=== PATIENT | female | born 1980 | race Caucasian/White ===

== ENCOUNTER 2017-02-23 19:40 | Emergency (ER) | payer OTHER ==
[~2017-02-23] VITALS: Ht 154.9 cm; Wt 60.1 kg
[2017-02-23 20:59] LABS: BILIRUBIN,URINE SMALL (NEG); GLUCOSE,URINE NEGATIVE (NEG); NITRITE,URINE NEGATIVE (NEG); PROTEIN,URINE 30 mg/dL (NEG-TRACE)
[2017-02-23 21:07] LABS: BACTERIA,URINE MODERATE /HPF (0-FEW); RBC,URINE 0 /HPF (0-2)
[2017-02-23 21:08] LABS: SQUAMOUS EPITHELIAL CELL,UR MOD /LPF
[2017-02-23 21:21] LABS: BASO % 1 % (0-3); EOS % 3 % (0-3); HEMATOCRIT 42.5 % (36.0-47.0); HEMOGLOBIN 13.9 g/dL (12.0-15.5); LYMPH # 2.1 x10^3/uL (1.0-4.8); LYMPH % 34 % (24-48); MEAN CORPUSCULAR HEMOGLOBIN 30 pg (25-35); MEAN CORPUSCULAR HGB CONC 33 g/dL (31-37); MEAN CORPUSCULAR VOLUME 90 fL (79-100); MONO % 8 % (0-9); NEUT % 54 % (31-73); PLATELET COUNT 229 x10^3/uL (140-400); RED BLOOD COUNT 4.72 x10^6/uL (3.50-5.40); RED CELL DISTRIBUTION WIDTH 14.6 % (11.5-14.5); WHITE BLOOD COUNT 6.2 x10^3/uL (4.0-11.0)
[2017-02-23 21:30] LABS: CALCIUM 9.1 mg/dL (8.5-10.1); CREATININE 0.7 mg/dL (0.6-1.0); GFR 95.8; POTASSIUM 3.3 mmol/L (3.5-5.1)
[2017-02-23] MEDS ORDERED: ONDANSETRON PF 4 MG/2 ML VIAL. IV ONE (21:30)
[2017-02-23] MEDS ORDERED: MORPHINE SULFATE 4 MG/ML DISP.SYRIN. IV ONE (21:30)
[2017-02-23] MEDS ORDERED: IV NORMAL SALINE 1000ML BAG 1,000 ML IV ONE (21:30)
--- NOTE | 2017-02-23 22:23 | RAD ---
PROCEDURE Pelvic sonogram. HISTORY Pelvic pain. TECHNIQUE Trans abdominal and transvaginal sonographic imaging of the pelvis was performed. COMPARISON None. FINDINGS The uterus measures 8.4 x 5.2 x 3.5 cm. The endometrial stripe measures 8.2 mm. The right ovary measures 3.0 x 2.5 x 2.1 cm and contains a 2.0 cm cyst. The left ovary measures 2.1 x 1.2 x 1.0 cm. There is normal blood flow within both ovaries. There are bilateral ovarian follicles. There are nabothian cysts within the cervix. There is no pelvic free fluid. IMPRESSION 1. 2.0 cm right ovarian cyst. 2. Nabothian cysts within the cervix. Electronically signed by: Ginny Lucas (Feb 23, 2017 22:21:34)
[2017-02-23] MEDS ORDERED: HYDR-971 PO (22:58)
[2017-02-23] MEDS ORDERED: ONDA4TAB7 PO (22:58)
--- NOTE | 2017-02-23 22:59 | PHYS DOC ---
Past Medical History Past Medical History: Other Additional Past Medical Histor: ovarian cysts, 'abd migraines' Past Surgical History: Appendectomy, Other Additional Past Surgical Histo: fallopian tube removal Alcohol Use: Rarely Drug Use: None Adult General Chief Complaint Chief Complaint: FLANK PAIN HPI HPI This 36 old female who's having significant lower abdominal pain for the last day and a half. She states she's had intermittent episodes of symptoms similar to this for the past year and has had multiple CT scans and ultrasounds that have demonstrated only cysts in her ovaries. She has history of tubal ligations but still has both of her ovaries and uterus. She denies any current vaginal bleeding. She states she was complete her normal menstrual cycles for the past several weeks ago. She has been mildly nauseated as well with her symptoms. She denies any dysuria or hematuria. She denies any fever or chills. She rates her pain a 9/10 on the pain scale. Review of Systems Review of Systems Constitutional: Denies fever or chills [] Eyes: Denies change in visual acuity, redness, or eye pain [] HENT: Denies nasal congestion or sore throat [] Respiratory: Denies cough or shortness of breath [] Cardiovascular: No additional information not addressed in HPI [] GI: Has abdominal pain, has nausea, has vomiting, denies bloody stools or diarrhea [] : Denies dysuria or hematuria [] Musculoskeletal: Denies back pain or joint pain [] Integument: Denies rash or skin lesions [] Neurologic: Denies headache, focal weakness or sensory changes [] Endocrine: Denies polyuria or polydipsia [] Current Medications Current Medications Current Medications Medications (Trade) Dose Ordered Sig/Sharon Start Time Stop Time Status Last Admin Dose Admin Morphine Sulfate 4 mg 1X ONCE 02/23/17 21:30 02/23/17 21:31 DC 02/23/17 21:40 4 MG Ondansetron HCl 4 mg 4 mg 1X ONCE 02/23/17 21:30 02/23/17 21:31 DC 02/23/17 21:40 4 MG Sodium Chloride (Iv Sodium Chloride 0.9% 1000ml Bag) 1,000 ml @ 1,000 mls/hr 1X ONCE 02/23/17 21:30 02/23/17 22:29 DC 02/23/17 21:27 1,000 MLS/HR Allergies Allergies Allergies Coded Allergies Type Severity Reaction Last Updated Verified No Known Drug Allergies 02/23/17 No Physical Exam Physical Exam Constitutional: Well developed, well nourished, no acute distress, non-toxic appearance. [] HENT: Normocephalic, atraumatic, bilateral external ears normal, oropharynx moist, no oral exudates, nose normal. [] Eyes: PERRLA, EOMI, conjunctiva normal, no discharge. [] Neck: Normal range of motion, no tenderness, supple, no stridor. [] Cardiovascular:Heart rate regular rhythm, no murmur [] Lungs & Thorax: Bilateral breath sounds clear to auscultation [] Abdomen: Bowel sounds normal, soft, lower abdominal tenderness, no masses, no pulsatile masses. [] Skin: Warm, dry, no erythema, no rash. [] Back: No tenderness, no CVA tenderness. [] Extremities: No tenderness, no cyanosis, no clubbing, ROM intact, no edema. [] Neurologic: Alert and oriented X 3, normal motor function, normal sensory function, no focal deficits noted. [] Psychologic: Affect normal, judgement normal, mood normal. [] Current Patient Data Vital Signs Vital Signs Date Time Temp Pulse Resp B/P Pulse Ox O2 Delivery O2 Flow Rate FiO2 02/23/17 23:24 72 12 98/63 Room Air 02/23/17 20:26 100 02/23/17 19:53 98.4 98.4 Lab Values Laboratory Tests Test 02/23/17 20:19 White Blood Count 6.2x10^3/uL (4.0-11.0) Red Blood Count 4.72x10^6/uL (3.50-5.40) Hemoglobin 13.9g/dL (12.0-15.5) Hematocrit 42.5% (36.0-47.0) Mean Corpuscular Volume 90fL (79-100) Mean Corpuscular Hemoglobin 30pg (25-35) Mean Corpuscular Hemoglobin Concent 33g/dL (31-37) Red Cell Distribution Width 14.6% (11.5-14.5) H Platelet Count 229x10^3/uL (140-400) Neutrophils (%) (Auto) 54% (31-73) Lymphocytes (%) (Auto) 34% (24-48) Monocytes (%) (Auto) 8% (0-9) Eosinophils (%) (Auto) 3% (0-3) Basophils (%) (Auto) 1% (0-3) Neutrophils # (Auto) 3.3x10^3uL (1.8-7.7) Lymphocytes # (Auto) 2.1x10^3/uL (1.0-4.8) Monocytes # (Auto) 0.5x10^3/uL (0.0-1.1) Eosinophils # (Auto) 0.2x10^3/uL (0.0-0.7) Basophils # (Auto) 0.0x10^3/uL (0.0-0.2) Urine Color Jalyn Urine Clarity Cloudy Urine pH 6.0 Urine Specific [place] 1.020 Urine Protein 30mg/dL (NEG-TRACE) Urine Glucose (UA) Negativemg/dL (NEG) Urine Ketones (Stick) Tracemg/dL (NEG) Urine Blood Negative (NEG) Urine Nitrite Negative (NEG) Urine Bilirubin Small (NEG) Urine Urobilinogen Dipstick 1.0mg/dL (0.2 mg/dL) Urine Leukocyte Esterase Small (NEG) Urine RBC 0/HPF (0-2) Urine WBC 1-4/HPF (0-4) Urine Squamous Epithelial Cells Mod/LPF Urine Bacteria Moderate/HPF (0-FEW) Urine Mucus Marked/LPF Sodium Level 141mmol/L (136-145) Potassium Level 3.3mmol/L (3.5-5.1) L Chloride Level 106mmol/L (98-107) Carbon Dioxide Level 28mmol/L (21-32) Anion Gap 7 (6-14) Blood Urea Nitrogen 7mg/dL (7-20) Creatinine 0.7mg/dL (0.6-1.0) Estimated GFR (Cockcroft-Gault) 95.8 Glucose Level 108mg/dL (70-99) H Calcium Level 9.1mg/dL (8.5-10.1) Laboratory Tests 02/23/17 20:19 Laboratory Tests 02/23/17 20:19 EKG EKG [] Radiology/Procedures Radiology/Procedures PROCEDURE Pelvic sonogram. HISTORY Pelvic pain. TECHNIQUE Trans abdominal and transvaginal sonographic imaging of the pelvis was performed. COMPARISON None. FINDINGS The uterus measures 8.4 x 5.2 x 3.5 cm. The endometrial stripe measures 8.2 mm. The right ovary measures 3.0 x 2.5 x 2.1 cm and contains a 2.0 cm cyst. The left ovary measures 2.1 x 1.2 x 1.0 cm. There is normal blood flow within both ovaries. There are bilateral ovarian follicles. There are nabothian cysts within the cervix. There is no pelvic free fluid. IMPRESSION 1. 2.0 cm right ovarian cyst. 2. Nabothian cysts within the cervix. Electronically signed by: Ginny Lucas (Feb 23, 2017 22:21:34) Course & Med Decision Making Course & Med Decision Making Pertinent Labs and Imaging studies reviewed. (See chart for details) 36-year-old female who's having significant lower abdominal pain and had a pelvic ultrasound that demonstrates a right-sided ovarian cyst but no other acute abnormality seen besides nabothian cysts within the cervix. She has good blood flow to both ovaries. Her laboratory workup was unremarkable. I'll be giving her a short course of pain control and nausea meds for her abdominal pain likely related to her ovarian cyst. She will follow up closely with her primary doctor for symptom resolution. Dragon Disclaimer Dragon Disclaimer This electronic medical record was generated, in whole or in part, using a voice recognition dictation system. Departure Departure Impression: Primary Impression: Ovarian cyst Disposition: 01 HOME, SELF-CARE Admitting Physician: Other Condition: STABLE Referrals: NO PCP (PCP) Patient Instructions: Ovarian Cyst, [id number] Additional Instructions: Please take your pain medication as prescribed and follow up with your primary doctor as discussed in the next 1-2 days. Return to the ER if you develop any develop any worsening of your symptoms. Continue to drink plenty of fluids and take zofran as needed. Scripts Ondansetron Hcl (Zofran)4 Mg Tablet4 Mg PO BID PRN NAUSEA/VOMITING #10 TAB Prov:VANESSA MARTIN DO 02/23/17 Hydrocodone/Apap 5-325 ([place] 5-325 Tablet)1 Each Tablet1 Tab PO PRN Q6HRS PRN PAIN #10 TAB Prov:VANESSA MARTIN DO 02/23/17 VANESSA MARTIN DO Feb 23, 2017 22:59
[2017-02-23 23:24] VITALS: BP 98/63
== END 2017-02-23 23:27 | disposition home or self-care (01) ==
LOC: ER 19:40
DX: N83.201 Unspecified ovarian cyst, right side (principal)
CPT/HCPCS: 36415; 76830; 76856; 80048; 81001; 81025; 85027; 87086; 96361; 96374; 96375; 99285; J2270; J2405; J7030

== ENCOUNTER 2017-03-19 18:22 | Emergency (ER) | payer OTHER ==
[~2017-03-19] VITALS: Ht 154.9 cm; Wt 59.9 kg
[~2017-03-19 18:22] MED LIST: HYDR-971 PO; ONDA4TAB7 PO
--- NOTE | 2017-03-19 18:26 | PHYS DOC ---
Past Medical History Past Medical History: Other Additional Past Medical Histor: ovarian cysts, 'abd migraines' Past Surgical History: Appendectomy, Other Additional Past Surgical Histo: fallopian tube removal Alcohol Use: Rarely Drug Use: None Adult General Chief Complaint Chief Complaint: ABDOMINAL PAIN HPI HPI Patient is a 36 year old female presenting to the emergency department for evaluation of diffuse lower abdominal pain that has been going on worse today. Patient admits that she has chronic low abdominal pain and has seen multiple people and specialists that don't know what she has the pain for. R[employer]HOUSE WORKER said that they will consider doing hysterectomy if pain persists. She is going to see her ROUNDHOUSE WORKER next thursday and pursue that pathway given she has done everything she was told to do and still has severe pain. No fevers, chills, vomiting, vaginal dc, bleeding. She is in nad with normal VS. Review of Systems Review of Systems Constitutional: Denies fever or chills [] Respiratory: Denies cough or shortness of breath [] Cardiovascular: No additional information not addressed in HPI [] GI: + abdominal pain, nausea. No vomiting, bloody stools or diarrhea [] : Denies dysuria or hematuria [] Musculoskeletal: Denies back pain or joint pain [] Neurologic: Denies headache, focal weakness or sensory changes [] Current Medications Current Medications Current Medications Medications (Trade) Dose Ordered Sig/[facility] Start Time Stop Time Status Last Admin Dose Admin Ketorolac Tromethamine (Toradol Im) 60 mg 1X ONCE 03/19/17 19:00 03/19/17 19:01 DC 03/19/17 19:09 60 MG Ondansetron HCl (Zofran Odt) 4 mg 1X ONCE 03/19/17 19:00 03/19/17 19:01 DC 03/19/17 19:10 4 MG Oxycodone/ Acetaminophen (Percocet 5/325) 2 tab 1X ONCE 03/19/17 19:00 03/19/17 19:01 DC 03/19/17 19:10 2 TAB Allergies Allergies Allergies Coded Allergies Type Severity Reaction Last Updated Verified No Known Drug Allergies 02/23/17 No Physical Exam Physical Exam Constitutional: Well developed, well nourished, no acute distress, non-toxic appearance. [] Neck: Normal range of motion, no tenderness, supple, no stridor. [] Cardiovascular:Heart rate regular rhythm, no murmur [] Lungs & Thorax: Bilateral breath sounds clear to auscultation [] Abdomen: Bowel sounds normal, soft, + diffuse lower abdominal tenderness, No rebound or guarding. no masses, no pulsatile masses. [] Current Patient Data Vital Signs Vital Signs Date Time Temp Pulse Resp B/P (MAP) Pulse Ox O2 Delivery O2 Flow Rate FiO2 03/19/17 19:10 Room Air 03/19/17 19:05 98.4 85 28 121/68 (85) 99 98.4 Lab Values Laboratory Tests Test 03/19/17 17:47 03/19/17 18:35 POC Urine HCG, Qualitative Hcg negative (Negative) Urine Color Yellow Urine Clarity Clear Urine pH 7.0 Urine Specific [place] <=1.005 Urine Protein Negative mg/dL (NEG-TRACE) Urine Glucose (UA) Negative mg/dL (NEG) Urine Ketones (Stick) Negative mg/dL (NEG) Urine Blood Negative (NEG) Urine Nitrite Negative (NEG) Urine Bilirubin Negative (NEG) Urine Urobilinogen Dipstick 0.2 mg/dL (0.2 mg/dL) Urine Leukocyte Esterase Negative (NEG) Urine RBC 0 /HPF (0-2) Urine WBC Occ /HPF (0-4) Urine Squamous Epithelial Cells Occ /LPF Urine Bacteria Few /HPF (0-FEW) EKG EKG [] Radiology/Procedures Radiology/Procedures [] Course & Med Decision Making Course & Med Decision Making Has had multiple negative workups. Will treat supportively as an outpatient for now by controlling pain. Dragon Disclaimer Dragon Disclaimer This electronic medical record was generated, in whole or in part, using a voice recognition dictation system. Departure Departure Impression: Primary Impression: Abdominal pain Disposition: 01 HOME, SELF-CARE Condition: GOOD Referrals: NO PCP (PCP) Patient Instructions: Ovarian Cyst Additional Instructions: TAKE 400MG OF IBUPROFEN EVERY 6 HOURS AND THE PERCOCET FOR BREAKTHROUGH PAIN. KEEP YOUR FOLLOW UP APPOINTMENTS. THANK YOU! Scripts Ondansetron (ZOFRAN ODT) 4 Mg Tab.rapdis 4 MG PO BID Y for NAUSEA/VOMITING, #14 TAB Prov: RONNA DONG DO 03/19/17 Oxycodone/Apap 5-325 (PERCOCET 5-325 MG TABLET) 1 Each Tablet 1 TAB PO PRN Q6HRS Y for PAIN, #20 TAB 0 Refills Prov: RONNA DONG DO 03/19/17 Problem Qualifiers Primary Impression: Abdominal pain Abdominal location: lower abdomen, unspecified Qualified Codes: R10.30 - Lower abdominal pain, unspecified RONNA DONG DO March 19, 2017 18:26
[2017-03-19] MEDS ORDERED: oxyCODONE/APAP 5/325 1 TAB TABLET PO ONE (19:00)
[2017-03-19] MEDS ORDERED: ONDANSETRON ODT 4 MG TAB.RAPDIS. PO ONE (19:00)
[2017-03-19] MEDS ORDERED: KETOROLAC TROMETHAMINE 60 MG/2 ML INJ. IM ONE (19:00)
[2017-03-19 19:16] LABS: BILIRUBIN,URINE NEGATIVE (NEG); GLUCOSE,URINE NEGATIVE (NEG); NITRITE,URINE NEGATIVE (NEG); PROTEIN,URINE NEGATIVE (NEG-TRACE); UROBILINOGEN,URINE 0.2 mg/dL (0.2 mg/dL)
[2017-03-19 19:22] LABS: BACTERIA,URINE FEW /HPF (0-FEW); RBC,URINE 0 /HPF (0-2); SQUAMOUS EPITHELIAL CELL,UR OCC /LPF; WBC,URINE OCC /HPF (0-4)
[2017-03-19] MEDS ORDERED: OXYC-323 PO (19:29)
[2017-03-19] MEDS ORDERED: ONDA4TAB10 PO (19:29)
[2017-03-19 19:30] VITALS: BP 115/77
== END 2017-03-19 19:43 | disposition home or self-care (01) ==
LOC: ER 18:22
DX: G89.29 Other chronic pain (principal); R10.30 Lower abdominal pain, unspecified; Z90.49 Acquired absence of other specified parts of digestive tract; Z90.79 Acquired absence of other genital organ(s)
CPT/HCPCS: 81001; 81025; 96372; 99283; J1885; Q0162; 84703

== ENCOUNTER 2017-04-21 03:18 | Emergency (ER) | payer OTHER ==
[~2017-04-21] VITALS: Ht 154.9 cm; Wt 56.7 kg
[~2017-04-21 03:18] MED LIST changes: +ONDA4TAB10 PO; +OXYC-323 PO
[2017-04-21 03:31] VITALS: BP 131/85
[2017-04-21] MEDS ORDERED: KETOROLAC 15 MG/ML VIAL. IV ONE (03:45)
[2017-04-21] MEDS ORDERED: ONDANSETRON PF 4 MG/2 ML VIAL. IV ONE (03:45)
[2017-04-21] MEDS ORDERED: traMADol 50 MG TABLET PO ONE (03:45)
[2017-04-21 03:49] LABS: BASO # 0.1 x10^3/uL (0.0-0.2); BASO % 1 % (0-3); EOS % 1 % (0-3); HEMATOCRIT 42.7 % (36.0-47.0); HEMOGLOBIN 14.3 g/dL (12.0-15.5); LYMPH # 3.4 x10^3/uL (1.0-4.8); LYMPH % 35 % (24-48); MEAN CORPUSCULAR HEMOGLOBIN 30 pg (25-35); MEAN CORPUSCULAR HGB CONC 34 g/dL (31-37); MEAN CORPUSCULAR VOLUME 90 fL (79-100); MONO % 5 % (0-9); NEUT % 57 % (31-73); PLATELET COUNT 257 x10^3/uL (140-400); RED BLOOD COUNT 4.72 x10^6/uL (3.50-5.40); RED CELL DISTRIBUTION WIDTH 14.3 % (11.5-14.5); WHITE BLOOD COUNT 9.7 x10^3/uL (4.0-11.0)
[2017-04-21 03:51] LABS: BILIRUBIN,URINE NEGATIVE (NEG); GLUCOSE,URINE NEGATIVE (NEG); NITRITE,URINE NEGATIVE (NEG); PH,URINE 7.5; PROTEIN,URINE NEGATIVE (NEG-TRACE); UROBILINOGEN,URINE 0.2 mg/dL (0.2 mg/dL)
[2017-04-21 03:55] LABS: BACTERIA,URINE 0 /HPF (0-FEW); WBC,URINE OCC /HPF (0-4)
[2017-04-21 03:56] LABS: SQUAMOUS EPITHELIAL CELL,UR FEW /LPF
[2017-04-21 04:00] LABS: CALCIUM 8.7 mg/dL (8.5-10.1); CREATININE 0.7 mg/dL (0.6-1.0); GFR 95.8; POTASSIUM 3.4 mmol/L (3.5-5.1)
[2017-04-21 04:08] LABS: ALBUMIN 3.6 g/dL (3.4-5.0); ALBUMIN/GLOBULIN RATIO 1.1 (1.0-1.7); TOTAL BILIRUBIN 0.5 mg/dL (0.2-1.0)
[2017-04-21] MEDS ORDERED: KETOROLAC TROMETHAMINE 30 MG/ML INJ. ONE (04:09)
--- NOTE | 2017-04-21 05:30 | PHYS DOC ---
Past Medical History Past Medical History: Other Additional Past Medical Histor: ovarian cysts, 'abd migraines' Past Surgical History: Appendectomy, Other Additional Past Surgical Histo: fallopian tube removal Alcohol Use: Rarely Drug Use: None Adult General Chief Complaint Chief Complaint: ABDOMINAL PAIN HPI HPI Patient is a 36 year old female with a history significant for ovarian cysts presents to the ER today complaining of exacerbation of her ovarian cyst pain. Patient reports she's got pain to her left lower quadrant that started approximately 2 hours ago and woke her up. Patient has any fevers shakes chills. Patient reports she is nauseous from the pain. Patient has any vomiting or diarrhea. Patient has any dysuria frequency or urgency. Patient has any vaginal discharge. Patient reports her last menstrual period was 2 weeks ago. Patient reports her last by mouth intake was approximately 6 PM when she possibly. Patient denies any hypertension or diabetes. Patient has any liver longer kidney problems. Patient is status post appendectomy. Patient reports that she had bilateral tubal ligation. Patient does smoke she does not drink or do any drugs. Patient is allergic to any medications. Patient reports the pain is identical to her ovarian cyst pain in the past and she has been recommended to have surgery to remove them. Patient's reports her last ER visit was approximately one month ago. Patient's physical exam in the ED was significant for tenderness to palpation to her left lower quadrant. Patient has no rebound or guarding. Patient has normal active bowel sounds. Patient does not present with any signs or symptoms of be consistent with an acute surgical abdomen. Patient's labs were all within normal limits. Patient's ER course was significant for receiving Toradol I AM and 4 mg of IV morphine. Patient reports that she does feel improved. I discussed with the patient that she will need to follow-up with her primary care doctor to assist her with her chronic pain of her ovarian cysts. Patient is in agreement with this plan. Patient will be discharged home with a prescription for Ultram and ibuprofen 800 mg and is to contact her primary care physician or OB doctor for further management of her chronic pain secondary to her ovarian cysts. Review of Systems Review of Systems Constitutional: Denies fever or chills [] Eyes: Denies change in visual acuity, redness, or eye pain [] All other review systems are negative except as documented in the history of present illness portion. Current Medications Current Medications Current Medications Medications (Trade) Dose Ordered Sig/Sharon Start Time Stop Time Status Last Admin Dose Admin Ketorolac Tromethamine (Toradol) 30 mg STK-MED ONCE 04/21/17 04:09 04/21/17 04:10 DC Ondansetron HCl (Zofran) 4 mg 1X ONCE 04/21/17 03:45 04/21/17 04:15 DC 04/21/17 04:14 4 MG Tramadol HCl (Ultram) 50 mg 1X ONCE 04/21/17 03:45 04/21/17 04:15 DC 04/21/17 04:14 50 MG Allergies Allergies Allergies Coded Allergies Type Severity Reaction Last Updated Verified No Known Drug Allergies 02/23/17 No Physical Exam Physical Exam Constitutional: Well developed, well nourished, no acute distress, non-toxic appearance. [] HENT: Normocephalic, atraumatic, bilateral external ears normal, oropharynx moist, no oral exudates, nose normal. [] All other review systems are negative except as documented in the history of present illness portion. Current Patient Data Vital Signs Vital Signs Date Time Temp Pulse Resp B/P (MAP) Pulse Ox O2 Delivery O2 Flow Rate FiO2 04/21/17 03:31 98.7 98 20 131/85 (100) 98 Room Air 98.7 Lab Values Laboratory Tests Test 04/21/17 03:30 White Blood Count 9.7 x10^3/uL (4.0-11.0) Red Blood Count 4.72 x10^6/uL (3.50-5.40) Hemoglobin 14.3 g/dL (12.0-15.5) Hematocrit 42.7 % (36.0-47.0) Mean Corpuscular Volume 90 fL (79-100) Mean Corpuscular Hemoglobin 30 pg (25-35) Mean Corpuscular Hemoglobin Concent 34 g/dL (31-37) Red Cell Distribution Width 14.3 % (11.5-14.5) Platelet Count 257 x10^3/uL (140-400) Neutrophils (%) (Auto) 57 % (31-73) Lymphocytes (%) (Auto) 35 % (24-48) Monocytes (%) (Auto) 5 % (0-9) Eosinophils (%) (Auto) 1 % (0-3) Basophils (%) (Auto) 1 % (0-3) Neutrophils # (Auto) 5.6 x10^3uL (1.8-7.7) Lymphocytes # (Auto) 3.4 x10^3/uL (1.0-4.8) Monocytes # (Auto) 0.5 x10^3/uL (0.0-1.1) Eosinophils # (Auto) 0.1 x10^3/uL (0.0-0.7) Basophils # (Auto) 0.1 x10^3/uL (0.0-0.2) Urine Collection Type Unknown Urine Color Yellow Urine Clarity Clear Urine pH 7.5 Urine Specific [place] 1.015 Urine Protein Negative mg/dL (NEG-TRACE) Urine Glucose (UA) Negative mg/dL (NEG) Urine Ketones (Stick) Negative mg/dL (NEG) Urine Blood Negative (NEG) Urine Nitrite Negative (NEG) Urine Bilirubin Negative (NEG) Urine Urobilinogen Dipstick 0.2 mg/dL (0.2 mg/dL) Urine Leukocyte Esterase Negative (NEG) Urine RBC 1-2 /HPF (0-2) Urine WBC Occ /HPF (0-4) Urine Squamous Epithelial Cells Few /LPF Urine Bacteria 0 /HPF (0-FEW) Urine Mucus Mod /LPF Sodium Level 142 mmol/L (136-145) Potassium Level 3.4 mmol/L (3.5-5.1) L Chloride Level 107 mmol/L (98-107) Carbon Dioxide Level 26 mmol/L (21-32) Anion Gap 9 (6-14) Blood Urea Nitrogen 8 mg/dL (7-20) Creatinine 0.7 mg/dL (0.6-1.0) Estimated GFR (Cockcroft-Gault) 95.8 BUN/Creatinine Ratio 11 (6-20) Glucose Level 109 mg/dL (70-99) H Calcium Level 8.7 mg/dL (8.5-10.1) Total Bilirubin 0.5 mg/dL (0.2-1.0) Aspartate Amino Transferase (AST) 20 U/L (15-37) Alanine Aminotransferase (ALT) 23 U/L (14-59) Alkaline Phosphatase 51 U/L (46-116) Total Protein 7.0 g/dL (6.4-8.2) Albumin 3.6 g/dL (3.4-5.0) Albumin/Globulin Ratio 1.1 (1.0-1.7) Laboratory Tests 04/21/17 03:30 Laboratory Tests 04/21/17 03:30 EKG EKG [] Radiology/Procedures Radiology/Procedures [] Course & Med Decision Making Course & Med Decision Making Pertinent Labs and Imaging studies reviewed. (See chart for details) [] Dragon Disclaimer Dragon Disclaimer This electronic medical record was generated, in whole or in part, using a voice recognition dictation system. Departure Departure Impression: Primary Impression: Ovarian cyst Disposition: HOME, SELF-CARE Condition: IMPROVED Referrals: KELSI PACK (PCP) Patient Instructions: Chronic Pain Management, Ovarian Cyst Scripts Tramadol Hcl (ULTRAM) 50 Mg Tablet 1 TAB PO Q6HRS, #14 TAB Prov: ELIZABETH VIVAS MD 04/21/17 Ibuprofen (IBUPROFEN) 600 Mg Tablet 600 MG PO PRN Q6HRS Y for PAIN, #20 TAB Prov: ELIZABETH VIVAS MD 04/21/17 ELIZABETH VIVAS MD Apr 21, 2017 05:30
[2017-04-21] MEDS ORDERED: IBUP-1007 PO (05:40)
[2017-04-21] MEDS ORDERED: TRAM-48 PO (05:40)
[2017-04-21] MEDS ORDERED: MORPHINE SULFATE 4 MG/ML DISP.SYRIN. IV ONE (05:45)
== END 2017-04-21 06:07 | disposition home or self-care (01) ==
LOC: ER 03:18
DX: N83.202 Unspecified ovarian cyst, left side (principal); Z90.49 Acquired absence of other specified parts of digestive tract; Z98.51 Tubal ligation status; F17.200 Nicotine dependence, unspecified, uncomplicated
CPT/HCPCS: 36415; 80053; 81001; 85027; 96374; 96375; 99284; J1885; J2270; J2405

== ENCOUNTER 2017-05-03 20:37 | Emergency (ER) | payer OTHER ==
[~2017-05-03] VITALS: Ht 154.9 cm; Wt 56.7 kg
[~2017-05-03 20:37] MED LIST changes: +IBUP-1007 PO; +TRAM-48 PO
[2017-05-03 21:09] LABS: BILIRUBIN,URINE NEGATIVE (NEG); GLUCOSE,URINE NEGATIVE (NEG); NITRITE,URINE NEGATIVE (NEG); PROTEIN,URINE NEGATIVE (NEG-TRACE); UROBILINOGEN,URINE 0.2 mg/dL (0.2 mg/dL)
[2017-05-03 21:17] LABS: BACTERIA,URINE FEW /HPF (0-FEW); RBC,URINE >40 /HPF (0-2); SQUAMOUS EPITHELIAL CELL,UR FEW /LPF; WBC,URINE 20-40 /HPF (0-4)
[2017-05-03] MEDS ORDERED: PHEN100T82 PO (21:24)
[2017-05-03] MEDS ORDERED: LEVO500T8 PO (21:24)
--- NOTE | 2017-05-03 21:26 | PHYS DOC ---
Past Medical History Past Medical History: Other Additional Past Medical Histor: ovarian cysts, 'abd migraines' Past Surgical History: Appendectomy, Other Additional Past Surgical Histo: fallopian tube removal Alcohol Use: Rarely Drug Use: None Adult General Chief Complaint Chief Complaint: ABDOMINAL PAIN HPI HPI Patient is a 36 year old female who presents with suprapubic abdominal pain radiating to bilateral back associated with urinary frequency and dysuria. Symptoms started this morning. Symptoms are intermittent. She denies fever or chills, vomiting, diarrhea, constipation, hematuria, vaginal bleeding or discharge. Review of Systems Review of Systems Constitutional: Denies fever or chills [] Eyes: Denies change in visual acuity, redness, or eye pain [] HENT: Denies nasal congestion or sore throat [] Respiratory: Denies cough or shortness of breath [] Cardiovascular: No additional information not addressed in HPI [] GI: Denies nausea, vomiting, bloody stools or diarrhea [] : Denies hematuria [] Musculoskeletal: Denies joint pain [] Integument: Denies rash or skin lesions [] Neurologic: Denies headache, focal weakness or sensory changes [] Endocrine: Denies polyuria or polydipsia [] Current Medications Current Medications Current Medications Medications (Trade) Dose Ordered Sig/Sharon Start Time Stop Time Status Last Admin Dose Admin Ketorolac Tromethamine (Toradol) 30 mg 1X ONCE 05/03/17 21:30 05/03/17 21:31 UNV Phenazopyridine HCl (Pyridium) 200 mg 1X ONCE 05/03/17 21:30 05/03/17 21:31 UNV Allergies Allergies Allergies Coded Allergies Type Severity Reaction Last Updated Verified No Known Drug Allergies 02/23/17 No Physical Exam Physical Exam Constitutional: Well developed, well nourished, no acute distress, non-toxic appearance. [] HENT: Normocephalic, atraumatic, bilateral external ears normal, oropharynx moist, nose normal. [] Eyes: PERRLA, EOMI. [] Neck: Normal range of motion, supple. [] Cardiovascular:Heart rate regular rhythm [] Lungs & Thorax: Bilateral breath sounds clear to auscultation [] Abdomen: Bowel sounds normal, soft, mild suprapubic tenderness, no guarding or rebound. [] Skin: Warm, dry, no erythema, no rash. [] Back: No tenderness, no CVA tenderness. [] Extremities: No tenderness, ROM intact, no edema. [] Neurologic: Alert and oriented X 3, normal motor function, normal sensory function, no focal deficits noted. [] Psychologic: Affect normal, judgement normal, mood normal. [] Current Patient Data Vital Signs Vital Signs Date Time Temp Pulse Resp B/P (MAP) Pulse Ox O2 Delivery O2 Flow Rate FiO2 05/03/17 20:44 98.6 116 20 110/69 (83) 99 Room Air 98.6 Lab Values Laboratory Tests Test 05/03/17 20:45 Urine Collection Type Unknown Urine Color Yellow Urine Clarity Clear Urine pH 7.0 Urine Specific [place] <=1.005 Urine Protein Negative mg/dL (NEG-TRACE) Urine Glucose (UA) Negative mg/dL (NEG) Urine Ketones (Stick) Negative mg/dL (NEG) Urine Blood Large (NEG) Urine Nitrite Negative (NEG) Urine Bilirubin Negative (NEG) Urine Urobilinogen Dipstick 0.2 mg/dL (0.2 mg/dL) Urine Leukocyte Esterase Moderate (NEG) Urine RBC >40 /HPF (0-2) Urine WBC 20-40 /HPF (0-4) Urine Squamous Epithelial Cells Few /LPF Urine Bacteria Few /HPF (0-FEW) Course & Med Decision Making Course & Med Decision Making Pertinent Labs and Imaging studies reviewed. (See chart for details) Urine with signs of infection. Return precautions given. She understands and agrees with plan. Dragon Disclaimer Dragon Disclaimer This electronic medical record was generated, in whole or in part, using a voice recognition dictation system. Departure Departure Impression: Primary Impression: Acute cystitis with hematuria Disposition: HOME, SELF-CARE Condition: STABLE Referrals: KELSI PACK (PCP) Patient Instructions: Urinary Tract Infection, [id number] Additional Instructions: Take Pyridium to help with pain. Take Tylenol or ibuprofen as needed otherwise. Take levofloxacin for urinary tract infection. Follow-up with your primary care doctor within one week. Return for any concerns. Scripts Levofloxacin (LEVOFLOXACIN) 500 Mg Tablet 1 TAB PO DAILY, #3 TAB Prov: Tk ARRINGTON MD 05/03/17 Phenazopyridine Hcl (PYRIDIUM) 100 Mg Tablet 200 MG PO TID, #12 TAB Prov: Tk ARRINGTON MD 05/03/17 Tk ARRINGTON MD May 03, 2017 21:26
[2017-05-03 21:30] VITALS: BP 114/82
[2017-05-03] MEDS ORDERED: KETOROLAC TROMETHAMINE 30 MG/ML INJ. IV ONE (22:00)
[2017-05-03] MEDS ORDERED: PHENAZOPYRIDINE 200 MG TABLET. PO ONE (22:00)
== END 2017-05-03 21:45 | disposition home or self-care (01) ==
LOC: ER 20:37
DX: N30.01 Acute cystitis with hematuria (principal); Z90.49 Acquired absence of other specified parts of digestive tract; Z98.51 Tubal ligation status
CPT/HCPCS: 81001; 81025; 87086; 96374; 99284; J1885; 87186

== ENCOUNTER 2017-05-04 09:47 | Emergency (ER) | payer OTHER ==
[~2017-05-04 09:47] MED LIST changes: +LEVO500T8 PO; +PHEN100T82 PO
[2017-05-04 09:59] VITALS: BP 122/81
[2017-05-04 10:25] LABS: BILIRUBIN,URINE SMALL (NEG); GLUCOSE,URINE NEGATIVE (NEG); NITRITE,URINE POSITIVE (NEG); PH,URINE 6.5; PROTEIN,URINE >=300 mg/dL (NEG-TRACE)
[2017-05-04 10:29] LABS: NEG OBC UR NEG; POS OBC UR POS
[2017-05-04 10:35] LABS: BACTERIA,URINE MODERATE /HPF (0-FEW); RBC,URINE >40 /HPF (0-2); WBC,URINE 20-40 /HPF (0-4)
[2017-05-04] MEDS ORDERED: ACETAMINOPHEN 325 MG TABLET. PO ONE (11:00)
--- NOTE | 2017-05-04 11:02 | PHYS DOC ---
Past Medical History Past Medical History: Other Additional Past Medical Histor: ovarian cysts, 'abd migraines' Past Surgical History: Appendectomy, Other Additional Past Surgical Histo: fallopian tube removal Alcohol Use: Rarely Drug Use: None Adult General Chief Complaint Chief Complaint: PAIN ON URINATION [facility] HPI Patient is a 36 year old female presents emergency partner stating that she was seen here last night for urinary tract infection. Patient states that she was discharged later in the evening and did not get her prescription filled. Patient presents back to the emergency department less than 12 hours after being discharged with complaining of increased abdominal pain with back pain. Patient denies taking any Tylenol or ibuprofen for pain and discomfort. She denies any nausea vomiting she denies any fever, chills. Patient denies any vaginal discharge. Patient states that she has never had abdominal pain and discomfort before when she's had a urinary tract infection. Review of Systems Review of Systems Constitutional: Denies fever or chills [] Eyes: Denies change in visual acuity, redness, or eye pain [] HENT: Denies nasal congestion or sore throat [] Respiratory: Denies cough or shortness of breath [] Cardiovascular: No additional information not addressed in HPI [] GI: Denies abdominal pain, nausea, vomiting, bloody stools or diarrhea [] : dysuria denies hematuria [] Musculoskeletal: Denies back pain or joint pain [] Integument: Denies rash or skin lesions [] Neurologic: Denies headache, focal weakness or sensory changes [] Endocrine: Denies polyuria or polydipsia [] Allergies Allergies Allergies Coded Allergies Type Severity Reaction Last Updated Verified No Known Drug Allergies 02/23/17 No Physical Exam Physical Exam Constitutional: Well developed, well nourished, no acute distress, non-toxic appearance. [] HENT: Normocephalic, atraumatic, bilateral external ears normal, oropharynx moist, no oral exudates, nose normal. [] Eyes: PERRLA, EOMI, conjunctiva normal, no discharge. [] Neck: Normal range of motion, no tenderness, supple, no stridor. [] Cardiovascular:Heart rate regular rhythm, no murmur [] Lungs & Thorax: Bilateral breath sounds clear to auscultation [] Abdomen: Bowel sounds hypoactive, soft, suprapubic tenderness, no masses, no pulsatile masses. [] Skin: Warm, dry, no erythema, no rash. [] Back: No tenderness, bilateral CVA tenderness. [] Extremities: No tenderness, no cyanosis, no clubbing, ROM intact, no edema. [] Neurologic: Alert and oriented X 3, normal motor function, normal sensory function, no focal deficits noted. [] Psychologic: Affect normal, judgement normal, mood normal. [] Current Patient Data Vital Signs Vital Signs Date Time Temp Pulse Resp B/P (MAP) Pulse Ox O2 Delivery O2 Flow Rate FiO2 05/04/17 09:59 97.8 104 18 98 Room Air 97.8 Lab Values Laboratory Tests Test 05/04/17 10:12 Urine Collection Type Unknown Urine Color Red Urine Clarity Turbid Urine pH 6.5 Urine Specific [place] 1.020 Urine Protein >=300 mg/dL (NEG-TRACE) Urine Glucose (UA) Negative mg/dL (NEG) Urine Ketones (Stick) Trace mg/dL (NEG) Urine Blood Large (NEG) Urine Nitrite Positive (NEG) Urine Bilirubin Small (NEG) Urine Urobilinogen Dipstick 1.0 mg/dL (0.2 mg/dL) Urine Leukocyte Esterase Large (NEG) Urine RBC >40 /HPF (0-2) Urine WBC 20-40 /HPF (0-4) Urine Bacteria Moderate /HPF (0-FEW) Urine Test Negative (NEG) EKG EKG [] Radiology/Procedures Radiology/Procedures [] Course & Med Decision Making Course & Med Decision Making Pertinent Labs and Imaging studies reviewed. (See chart for details) Patient was provided with her urine results been positive for leukocyte Estrace , blood and nitrates. Explained to patient that this is why her abdomen as well as her back is hurting. Patient was instructed that she needs to get her antibiotics filled. Patient will be provided with a Levaquin here in the emergency department. She was be provided with Tylenol as well. Patient will be discharged home with recommendations to drink plenty of fluids such as water and cranberry juice. Avoid cranberry juice cocktail, carbonate beverages, citrus fruits and alcohol sees her considered irritants to the bladder. Patient agrees with discharge instructions treatment regimens and follow-up recommendations. Signs symptoms to return back to emergency department has been provided. [] Dragon Disclaimer Dragon Disclaimer This electronic medical record was generated, in whole or in part, using a voice recognition dictation system. Departure Departure Impression: Primary Impression: Urinary tract infection Disposition: 01 HOME, SELF-CARE Condition: STABLE Referrals: KELSI PACK (PCP) Patient Instructions: Urinary Tract Infection, [id number] Additional Instructions: Activity as tolerated. Tylenol or ibuprofen for pain and discomfort. Antibiotics as prescribed. Drink plenty of fluids such as water and cranberry juice. Avoid cranberry juice cocktail, carbonated beverages, citrus fruits and alcohol as these are considered irritants to the bladder. Follow-up to primary care physician in the next 7-10 days. Return back to emergency department for signs and symptoms of become worse. IRVIN ISAAC APRN May 04, 2017 11:02
== END 2017-05-04 11:11 | disposition home or self-care (01) ==
LOC: ER 09:47
DX: N39.0 Urinary tract infection, site not specified (principal); Z90.49 Acquired absence of other specified parts of digestive tract; Z90.721 Acquired absence of ovaries, unilateral
CPT/HCPCS: 81001; 81025; 87086; 99284

== ENCOUNTER 2017-12-11 09:13 | Emergency (ER) | payer OTHER | END 2017-12-11 10:45 | disposition home or self-care (01) | LOC: ER 09:13 | DX: S93.601A Unspecified sprain of right foot, initial encounter (principal); F17.200 Nicotine dependence, unspecified, uncomplicated; Z90.722 Acquired absence of ovaries, bilateral; W22.8XXA Striking against or struck by other objects, initial encounter; Y93.89 Activity, other specified; Y92.092 Bedroom in other non-institutional residence as the place of occurrence of the external cause; Y99.8 Other external cause status | CPT/HCPCS: 73630; 99284 ==